=== PATIENT | male | born 1935 | race Caucasian/White ===

== ENCOUNTER 2017-12-11 12:35 | Inpatient (IN) ==
[2017-12-11] MEDS ORDERED: FUROSEMIDE 100 MG/10 ML VIAL IV STA (13:24)
[2017-12-11 13:30] LABS: Basophils % 0.1 % (0.0-0.8); Eosinophils % 0.1 % (0.00-10.9); Hematocrit 38.8 VOL% (42.0-52.0); Hemoglobin 12.1 GM/DL (14.0-18.0); Immature Granulocytes % 0.8 %; Immature Granulocytes Absolute 0.15 #; Lymphocytes # 0.7 10*3/uL (1.4-4.0); Lymphocytes % 3.3 % (21.2-54.2); Mean Corpuscular HGB Conc 31.2 GM/DL (32-36); Mean Corpuscular Hemoglobin 26 PG (27-34); Mean Corpuscular Volume 84.2 FL (87-102); Mean Platelet Volume 11.2 FL (9.6-12.0); Monocytes % 5.2 % (1.7-12.7); Neutrophils # 17.9 10*3/uL (1.4-7.4); Neutrophils % 90.5 % (38.7-73.9); Platelet Count 312 T/CUMM (130-400); Red Blood Count 4.61 MC/CUMM (3.8-5.5); Red Cell Distribution Width 17.2 % (9.3-17.3); White Blood Count 19.8 T/CUMM (4-12)
[2017-12-11] MEDS ORDERED: FUROSEMIDE 100 MG/10 ML VIAL ONE (13:48)
[2017-12-11 13:49] LABS: Band Neutrophils 1 % (0-10); Giant Platelets Few; Hypochromasia 1+; Lymphocytes 1 % (20-55); Ovalocytes Slight; Platelet Estimate Adequate; Segmented Neutrophils 89 % (50-85); Total Cells Counted 100
[2017-12-11 14:05] LABS: Alanine Aminotransferase 25 U/L (16-61); Albumin 3.2 G/DL (3.4-5.0); Alkaline Phosphatase 71 U/L (45-117); Aspartate Amino Transferase 35 U/L (0-37); Blood Urea Nitrogen 102 MG/DL (7-18); Calcium 7.9 MG/DL (8.5-10.1); Glucose 90 MG/DL (74-106); Magnesium 2.3 MG/DL (1.8-2.4); Osmolality,Calculated 301.1 MOS/KG (273-304); Potassium 4.9 MMOL/L (3.5-5.1); Sodium 135 MMOL/L (136-145); Total Protein 8.1 G/DL (6.4-8.3)
[2017-12-11 14:26] LABS: Lactic Acid 2.4 MMOL/L (0.4-2.0)
[2017-12-11 14:27] LABS: Troponin I Only 0.092 NG/ML (0.00-0.045)
[2017-12-11] MEDS ORDERED: SODIUM CHLORIDE 0.9% 1,000 ML IV STA (15:02)
[2017-12-11] MEDS ORDERED: LEVOFLOXACIN INJ 500 MG in PREMIX 1 EACH IV STA (15:07)
[2017-12-11] MEDS ORDERED: ALBUTEROL 2.5 MG/3 ML NEB RESP TX PRN (15:24)
[2017-12-11] MEDS ORDERED: VANCOMYCIN INJ 1,000 MG in SODIUM CHLORIDE 0.9% 250 ML IV SCH (15:30)
[2017-12-11] MEDS ORDERED: AZITHROMYCIN INJ 500 MG in SODIUM CHLORIDE 0.9% 250 ML IV SCH (15:30)
[2017-12-11] MEDS ORDERED: NOREPINEPHRINE 8 MG in SODIUM CHLORIDE 0.9% 242 ML IV SCH (15:30)
[2017-12-11 15:52] LABS: ABG HCO3 16.5 MMOL/L (20-26); ABG Oxygen Saturation 97.4 % (95-100); ABG PH 7.349 (7.35-7.45); ABG TCO2 12.9 MMOL/L (23-27)
[2017-12-11] MEDS ORDERED: LEVOFLOXACIN INJ 100 ML IV ONE (16:00)
[2017-12-11 16:58] LABS: Apearance,Urine Slightly Hazy (Clear); Bacteria,Urine Occasional /HPF (Few); Bilirubin,Urine Negative (Negative); Blood, Urine Negative (Negative); Glucose,Urine (UA) Negative (Negative); Hyaline Casts,Urine 1 /LPF (0-3); Ketones,Urine Negative (Negative); Mucus,Urine Occasional /LPF (Occasional); Nitrite,Urine Negative (Negative); Protein,Urine Negative; RBC,Urine 2 /HPF (0-4); Squamous Epithelial Cell,Urine Occasional /HPF (0-10); Urine Color Yellow (Yellow); Urine Specific Gravity 1.013 (1.001-1.035); Urine Urobilinogen < 2.0 EU/DL (0.2-1.0); WBC,Urine 3 /HPF (0-6)
[2017-12-11] MEDS: ALBUTEROL/IPRATROPIUM 3 ML NEB RESP TX SCH (19:20)
[2017-12-11] MEDS ORDERED: SODIUM CHLORIDE 0.9% 250 ML IV ONE (19:31)
[2017-12-11] MEDS ORDERED: AZITHROMYCIN 500 MG VIAL IV ONE (19:32)
[2017-12-11] MEDS ORDERED: LEVOFLOXACIN INJ 150 ML IV ONE (20:49)
[2017-12-11] MEDS ORDERED: VANCOMYCIN 1,000 MG VIAL ONE (22:01)
[2017-12-11] MEDS ORDERED: ZOLPIDEM 5 MG TABLET PO STA (23:13)
[2017-12-11] MEDS ORDERED: ZOLPIDEM 5 MG TABLET ONE (23:18)
[2017-12-12] MEDS: ALBUTEROL/IPRATROPIUM 3 ML NEB RESP TX SCH ×4 (01:04→20:21)
[2017-12-12 04:53] LABS: Basophils % 0.1 % (0.0-0.8); Eosinophils % 0.3 % (0.00-10.9); Hematocrit 33.2 VOL% (42.0-52.0); Hemoglobin 10.6 GM/DL (14.0-18.0); Immature Granulocytes % 0.6 %; Immature Granulocytes Absolute 0.09 #; Lymphocytes # 1.3 10*3/uL (1.4-4.0); Lymphocytes % 9.3 % (21.2-54.2); Mean Corpuscular HGB Conc 31.9 GM/DL (32-36); Mean Corpuscular Hemoglobin 26 PG (27-34); Mean Platelet Volume 11.2 FL (9.6-12.0); Monocytes # 0.9 10*3/uL (0.11-0.8); Monocytes % 6.7 % (1.7-12.7); Neutrophils # 11.6 10*3/uL (1.4-7.4); Platelet Count 241 T/CUMM (130-400); Red Blood Count 4.05 MC/CUMM (3.8-5.5); Red Cell Distribution Width 17.2 % (9.3-17.3); White Blood Count 13.9 T/CUMM (4-12)
[2017-12-12 05:39] LABS: Albumin 2.4 G/DL (3.4-5.0); Bilirubin,Total 0.6 MG/DL (0.2-1.0); Calcium 7.2 MG/DL (8.5-10.1); Potassium 4.3 MMOL/L (3.5-5.1); Total Protein 6.5 G/DL (6.4-8.3)
[2017-12-12] MEDS: AZITHROMYCIN INJ 500 MG in SODIUM CHLORIDE 0.9% 250 ML IV SCH ×2 (06:30→16:57)
[2017-12-12] MEDS ORDERED: CLOPIDOGREL 75 MG TABLET ONE (08:33)
[2017-12-12] MEDS ORDERED: AZTREONAM 1,000 MG VIAL ONE (08:33)
[2017-12-12] MEDS ORDERED: ASPIRIN CHEW 81 MG TABLET PO ONE (08:33)
[2017-12-12] MEDS ORDERED: AZTREONAM 500 MG in SODIUM CHLORIDE 0.9% 100 ML IV SCH (09:00)
[2017-12-12] MEDS: CLOPIDOGREL 75 MG TABLET PO SCH (09:43)
[2017-12-12] MEDS: ASPIRIN CHEW 81 MG TABLET PO SCH (09:43)
[2017-12-12] MEDS: FINASTERIDE 5 MG TABLET PO SCH (09:47)
[2017-12-12] MEDS: SIMVASTATIN 40 MG TABLET PO SCH (09:48)
[2017-12-12] MEDS ORDERED: FUROSEMIDE 40 MG/4 ML VIAL ONE (10:45)
[2017-12-12] MEDS: FUROSEMIDE 40 MG/4 ML VIAL IV SCH ×2 (10:55→16:56)
[2017-12-12] MEDS ORDERED: VANCOMYCIN INJ 1,000 MG in SODIUM CHLORIDE 0.9% 250 ML IV PRN (11:20)
[2017-12-12] MEDS: methylPREDNISolone SOD SUC 40 MG/1 ML VIAL IV SCH (18:33)
[2017-12-12] MEDS: CARVEDILOL 6.25 MG TABLET PO SCH (21:58)
[2017-12-13] MEDS: ALBUTEROL/IPRATROPIUM 3 ML NEB RESP TX SCH ×3 (00:46→13:00)
[2017-12-13] MEDS: methylPREDNISolone SOD SUC 40 MG/1 ML VIAL IV SCH ×3 (01:04→13:25)
[2017-12-13 07:21] LABS: Calcium 8.2 MG/DL (8.5-10.1); Osmolality,Calculated 299.1 MOS/KG (273-304); Potassium 4.8 MMOL/L (3.5-5.1)
[2017-12-13 07:23] LABS: Risk Ratio 4.73
[2017-12-13] MEDS ORDERED: VANCOMYCIN INJ 1,000 MG in SODIUM CHLORIDE 0.9% 250 ML IV ONE (09:00)
[2017-12-13] MEDS ORDERED: AZTREONAM 500 MG in SYRINGE 1 EACH IV SCH (09:00)
[2017-12-13] MEDS ORDERED: clonazePAM 0.5 MG TABLET PO SCH (09:00)
[2017-12-13] MEDS: SIMVASTATIN 40 MG TABLET PO SCH (09:36)
[2017-12-13] MEDS: CARVEDILOL 6.25 MG TABLET PO SCH (09:36)
[2017-12-13] MEDS: CLOPIDOGREL 75 MG TABLET PO SCH (09:36)
[2017-12-13] MEDS: FINASTERIDE 5 MG TABLET PO SCH (09:36)
[2017-12-13] MEDS: FUROSEMIDE 40 MG/4 ML VIAL IV SCH (09:37)
[2017-12-13] MEDS: ASPIRIN CHEW 81 MG TABLET PO SCH (09:37)
[2017-12-13 11:31] VITALS: BP 132/75
== END 2017-12-13 15:32 | disposition left against medical advice (07) | DRG 871 ==
LOC: N.ED 12:35 → N.EDINP 15:18 → N.TELES 12-12 13:57
PROVIDERS: ADMIT Hospitalist; ATTEND Hospitalist

== ENCOUNTER 2017-12-29 17:05 | Inpatient (IN) ==
[2017-12-29] MEDS ORDERED: ONDANSETRON 4 MG/2 ML VIAL IV STA (17:29)
[2017-12-29] MEDS ORDERED: LEVOFLOXACIN INJ 750 MG in PREMIX 1 EACH IV STA (17:29)
[2017-12-29] MEDS ORDERED: CALCIUM CHLORIDE 1,000 MG/10 ML SYRINGE IV STA (17:29)
[2017-12-29] MEDS ORDERED: ALBUTEROL 2.5 MG/3 ML NEB RESP TX SCH (17:30)
[2017-12-29] MEDS ORDERED: LEVOFLOXACIN INJ 150 ML IV ONE (18:08)
[2017-12-29] MEDS ORDERED: ONDANSETRON 4 MG/2 ML VIAL ONE (18:09)
[2017-12-29] MEDS ORDERED: CALCIUM CHLORIDE 1,000 MG/10 ML SYRINGE IV ONE (18:09)
[2017-12-29 18:10] LABS: ABG Base Excess -13.2 MMOL/L (-2.5-2.5); ABG HCO3 14.3 MMOL/L (20-26); ABG Oxygen Saturation 95.7 % (95-100); ABG PCO2 24.5 MM HG (35-48); ABG PH 7.297 (7.35-7.45); ABG PO2 93.8 MM HG (80-95); ABG TCO2 10.7 MMOL/L (23-27); Allen Test Positive
[2017-12-29 18:30] LABS: Basophils % 0.1 % (0.0-0.8); Hematocrit 38.5 VOL% (42.0-52.0); Hemoglobin 12.2 GM/DL (14.0-18.0); Immature Granulocytes % 1.2 %; Lymphocytes # 0.6 10*3/uL (1.4-4.0); Lymphocytes % 2.4 % (21.2-54.2); Mean Corpuscular HGB Conc 31.7 GM/DL (32-36); Mean Corpuscular Hemoglobin 26 PG (27-34); Mean Corpuscular Volume 81.7 FL (87-102); Monocytes # 0.9 10*3/uL (0.11-0.8); Monocytes % 3.5 % (1.7-12.7); Neutrophils # 23.6 10*3/uL (1.4-7.4); Neutrophils % 92.8 % (38.7-73.9); Platelet Count 348 T/CUMM (130-400); Red Blood Count 4.71 MC/CUMM (3.8-5.5); Red Cell Distribution Width 19.5 % (9.3-17.3); White Blood Count 25.4 T/CUMM (4-12)
[2017-12-29] MEDS ORDERED: ACETAMINOPHEN 325 MG TABLET PO PRN (18:44)
[2017-12-29] MEDS ORDERED: ONDANSETRON 4 MG/2 ML VIAL IV PRN (18:44)
[2017-12-29 18:51] LABS: PT Patient Result 10.9 SECS; Partial Thromboplastin Time 24.5 SECS (0-40)
[2017-12-29 18:55] LABS: Apearance,Urine Slightly Hazy (Clear); Bacteria,Urine Occasional /HPF (Few); Bilirubin,Urine Negative (Negative); Blood, Urine Small mg/dL (Negative); Glucose,Urine (UA) Negative (Negative); Ketones,Urine 5 mg/dL (Negative); Mucus,Urine Occasional /LPF (Occasional); Nitrite,Urine Negative (Negative); Protein,Urine Negative; RBC,Urine 1 /HPF (0-4); Urine Color Yellow (Yellow); Urine Specific Gravity 1.012 (1.001-1.035); Urine Urobilinogen < 2.0 EU/DL (0.2-1.0); WBC,Urine 2 /HPF (0-6)
[2017-12-29 18:55] LABS: Albumin 3.6 G/DL (3.4-5.0); Bilirubin,Total 0.8 MG/DL (0.2-1.0); CKMB % 4.4 %; Calcium 8.6 MG/DL (8.5-10.1); Osmolality,Calculated 330.9 MOS/KG (273-304); Potassium 5.6 MMOL/L (3.5-5.1); Total Protein 7.2 G/DL (6.4-8.3)
[2017-12-29 18:56] LABS: Troponin I Only 0.08 NG/ML (0.00-0.045)
[2017-12-29] MEDS ORDERED: SODIUM CHLORIDE 0.9% 1,000 ML IV SCH ×2 (19:00→19:30)
[2017-12-29 19:13] LABS: Lymphocytes 1 % (20-55); Platelet Estimate Normal; Polychromasia Slight; Segmented Neutrophils 95 % (50-85); Total Cells Counted 100
[2017-12-29] MEDS ORDERED: ENOXAPARIN 30 MG/0.3 ML SYRINGE SUBCUT SCH (21:00)
[2017-12-29] MEDS ORDERED: SODIUM ACETATE 100 MEQ in STERILE WATER INJ 1,000 ML IV SCH (21:30)
[2017-12-29] MEDS ORDERED: SODIUM ACETATE IV SCH (22:00)
[2017-12-29] MEDS ORDERED: SODIUM CHLORIDE IV SCH (22:00)
[2017-12-29] MEDS ORDERED: [UNRECOGNIZED DRUG - OTHER] IV SCH (22:00)
[2017-12-29] MEDS ORDERED: SODIUM ACETATE 100 MEQ in DEXTROSE 5% NACL 0.22% 1,000 ML IV SCH (22:30)
[2017-12-29] MEDS: ALBUTEROL/IPRATROPIUM 3 ML NEB RESP TX SCH (22:52)
[2017-12-30] MEDS: ALBUTEROL/IPRATROPIUM 3 ML NEB RESP TX SCH ×6 (00:32→19:53)
[2017-12-30 02:48] LABS: Basophils % 0.1 % (0.0-0.8); Eosinophils % 0.1 % (0.00-10.9); Hematocrit 33.4 VOL% (42.0-52.0); Hemoglobin 10.8 GM/DL (14.0-18.0); Immature Granulocytes Absolute 0.26 #; Lymphocytes # 0.5 10*3/uL (1.4-4.0); Lymphocytes % 1.8 % (21.2-54.2); Mean Corpuscular HGB Conc 32.3 GM/DL (32-36); Mean Corpuscular Hemoglobin 27 PG (27-34); Mean Corpuscular Volume 82.1 FL (87-102); Mean Platelet Volume 12.1 FL (9.6-12.0); Monocytes # 1.9 10*3/uL (0.11-0.8); Monocytes % 7.3 % (1.7-12.7); Neutrophils # 23.6 10*3/uL (1.4-7.4); Neutrophils % 89.7 % (38.7-73.9); Platelet Count 299 T/CUMM (130-400); Red Blood Count 4.07 MC/CUMM (3.8-5.5); Red Cell Distribution Width 18.8 % (9.3-17.3); White Blood Count 26.3 T/CUMM (4-12)
[2017-12-30 04:56] LABS: Calcium 8.5 MG/DL (8.5-10.1); Osmolality,Calculated 337.1 MOS/KG (273-304); Potassium 5.1 MMOL/L (3.5-5.1)
[2017-12-30 06:11] LABS: Lymphocytes 2 % (20-55); Segmented Neutrophils 96 % (50-85); Total Cells Counted 100
[2017-12-30 06:12] LABS: Hypochromasia Slight; Platelet Estimate Normal
[2017-12-30] MEDS: PANTOPRAZOLE 40 MG TABLET PO SCH (09:02)
[2017-12-30] MEDS: APIXABAN 2.5 MG TABLET PO SCH ×2 (11:04→21:24)
[2017-12-30] MEDS: AZITHROMYCIN INJ 500 MG in SODIUM CHLORIDE 0.9% 250 ML IV SCH (11:05)
[2017-12-30] MEDS: SODIUM ACETATE 100 MEQ in DEXTROSE 5% NACL 0.22% 1,000 ML IV SCH ×2 (11:50→17:16)
[2017-12-31] MEDS: SODIUM ACETATE 100 MEQ in DEXTROSE 5% NACL 0.22% 1,000 ML IV SCH ×2 (00:05→07:07)
[2017-12-31] MEDS: ALBUTEROL/IPRATROPIUM 3 ML NEB RESP TX SCH ×6 (01:15→19:39)
[2017-12-31 05:00] LABS: Basophils % 0.1 % (0.0-0.8); Eosinophils # 0.1 10*3/uL (0.0-0.87); Eosinophils % 0.6 % (0.00-10.9); Hematocrit 30.1 VOL% (42.0-52.0); Hemoglobin 10.2 GM/DL (14.0-18.0); Immature Granulocytes % 0.7 %; Immature Granulocytes Absolute 0.11 #; Lymphocytes # 0.4 10*3/uL (1.4-4.0); Lymphocytes % 2.3 % (21.2-54.2); Mean Corpuscular HGB Conc 33.9 GM/DL (32-36); Mean Corpuscular Hemoglobin 27 PG (27-34); Mean Corpuscular Volume 78.2 FL (87-102); Mean Platelet Volume 11.7 FL (9.6-12.0); Monocytes % 6.7 % (1.7-12.7); Neutrophils # 13.7 10*3/uL (1.4-7.4); Neutrophils % 89.6 % (38.7-73.9); Platelet Count 181 T/CUMM (130-400); Red Blood Count 3.85 MC/CUMM (3.8-5.5); Red Cell Distribution Width 19.3 % (9.3-17.3); White Blood Count 15.3 T/CUMM (4-12)
[2017-12-31 05:37] LABS: Albumin 2.5 G/DL (3.4-5.0); Bilirubin,Total 0.9 MG/DL (0.2-1.0); Calcium 6.6 MG/DL (8.5-10.1); Osmolality,Calculated 330.7 MOS/KG (273-304); Potassium 3.9 MMOL/L (3.5-5.1); Total Protein 5.1 G/DL (6.4-8.3)
[2017-12-31 06:04] LABS: Lymphocytes 3 % (20-55); Segmented Neutrophils 90 % (50-85); Total Cells Counted 100
[2017-12-31 06:05] LABS: Hypochromasia 1+; Microcytosis 1+; Platelet Estimate Adequate
[2017-12-31 06:14] LABS: Troponin I Only 0.119 NG/ML (0.00-0.045)
[2017-12-31] MEDS: APIXABAN 2.5 MG TABLET PO SCH ×2 (10:42→21:38)
[2017-12-31] MEDS: PANTOPRAZOLE 40 MG TABLET PO SCH (10:42)
[2017-12-31] MEDS: DEXTROSE 5% NACL 0.9% 1,000 ML IV SCH (13:41)
[2017-12-31] MEDS: AZITHROMYCIN INJ 500 MG in SODIUM CHLORIDE 0.9% 250 ML IV SCH (13:43)
[2017-12-31] MEDS: LEVOFLOXACIN INJ 500 MG in PREMIX 1 EACH IV SCH (19:11)
[2017-12-31] MEDS: AMIODARONE 200 MG TABLET PO SCH (21:38)
[2018-01-01] MEDS: ALBUTEROL/IPRATROPIUM 3 ML NEB RESP TX SCH ×7 (00:50→23:20)
[2018-01-01] MEDS: DEXTROSE 5% NACL 0.9% 1,000 ML IV SCH ×4 (02:05→20:55)
[2018-01-01 06:16] LABS: Basophils % 0.1 % (0.0-0.8); Eosinophils % 0.2 % (0.00-10.9); Hematocrit 28.3 VOL% (42.0-52.0); Immature Granulocytes % 1.5 %; Immature Granulocytes Absolute 0.35 #; Lymphocytes # 0.4 10*3/uL (1.4-4.0); Lymphocytes % 1.8 % (21.2-54.2); Mean Corpuscular HGB Conc 31.8 GM/DL (32-36); Mean Corpuscular Hemoglobin 26 PG (27-34); Mean Platelet Volume 12.8 FL (9.6-12.0); Monocytes # 1.6 10*3/uL (0.11-0.8); Monocytes % 6.8 % (1.7-12.7); Neutrophils # 21.4 10*3/uL (1.4-7.4); Neutrophils % 89.6 % (38.7-73.9); Platelet Count 138 T/CUMM (130-400); Red Blood Count 3.41 MC/CUMM (3.8-5.5); Red Cell Distribution Width 19.8 % (9.3-17.3); White Blood Count 23.8 T/CUMM (4-12)
[2018-01-01 06:50] LABS: Band Neutrophils 2 % (0-10); Giant Platelets Few; Hypochromasia 1+; Lymphocytes 3 % (20-55); Microcytosis Slight; Ovalocytes Slight; Platelet Estimate Normal; Segmented Neutrophils 90 % (50-85); Total Cells Counted 100
[2018-01-01 07:38] LABS: Calcium 6.6 MG/DL (8.5-10.1); Osmolality,Calculated 306.2 MOS/KG (273-304); Potassium 3.7 MMOL/L (3.5-5.1)
[2018-01-01] MEDS: ASCORBIC ACID 500 MG TABLET PO SCH ×2 (09:34→20:55)
[2018-01-01] MEDS: PANTOPRAZOLE 40 MG TABLET PO SCH ×2 (09:34→20:55)
[2018-01-01] MEDS: AMIODARONE 200 MG TABLET PO SCH ×2 (09:35→20:55)
[2018-01-01] MEDS: APIXABAN 2.5 MG TABLET PO SCH (09:35)
[2018-01-01] MEDS: AZITHROMYCIN INJ 500 MG in SODIUM CHLORIDE 0.9% 250 ML IV SCH (11:26)
[2018-01-01] MEDS ORDERED: LIDOCAINE 2% TOP JELLY 20 ML VIAL INTRAURETH ONE (13:21)
[2018-01-02] MEDS: ALBUTEROL/IPRATROPIUM 3 ML NEB RESP TX SCH ×6 (03:10→23:19)
[2018-01-02 04:18] LABS: Basophils % 0.1 % (0.0-0.8); Eosinophils # 0.1 10*3/uL (0.0-0.87); Eosinophils % 0.7 % (0.00-10.9); Hematocrit 24.6 VOL% (42.0-52.0); Hemoglobin 7.9 GM/DL (14.0-18.0); Immature Granulocytes % 0.9 %; Immature Granulocytes Absolute 0.17 #; Lymphocytes # 0.5 10*3/uL (1.4-4.0); Lymphocytes % 2.9 % (21.2-54.2); Mean Corpuscular HGB Conc 32.1 GM/DL (32-36); Mean Corpuscular Hemoglobin 26 PG (27-34); Mean Platelet Volume 12.2 FL (9.6-12.0); Monocytes # 1.1 10*3/uL (0.11-0.8); Neutrophils # 16.4 10*3/uL (1.4-7.4); Neutrophils % 89.4 % (38.7-73.9); Platelet Count 113 T/CUMM (130-400); Red Cell Distribution Width 19.9 % (9.3-17.3); White Blood Count 18.3 T/CUMM (4-12)
[2018-01-02 04:39] LABS: INR 1.4; PT Patient Result 14.7 SECS
[2018-01-02 04:45] LABS: Anisocytosis 1+; Hypochromasia 1+; Lymphocytes 1 % (20-55); Microcytosis 1+; Ovalocytes Slight; Segmented Neutrophils 95 % (50-85); Total Cells Counted 100
[2018-01-02 04:46] LABS: Platelet Estimate Decreased
[2018-01-02 04:50] LABS: Calcium 6.5 MG/DL (8.5-10.1); Osmolality,Calculated 302.8 MOS/KG (273-304); Potassium 3.2 MMOL/L (3.5-5.1)
[2018-01-02] MEDS: DEXTROSE 5% NACL 0.9% 1,000 ML IV SCH ×2 (07:58→11:26)
[2018-01-02] MEDS: ASCORBIC ACID 500 MG TABLET PO SCH ×2 (10:35→20:54)
[2018-01-02] MEDS: AMIODARONE 200 MG TABLET PO SCH ×2 (10:35→20:54)
[2018-01-02] MEDS: PANTOPRAZOLE 40 MG TABLET PO SCH ×3 (10:35→21:11)
[2018-01-02] MEDS: POTASSIUM CHLORIDE 20 MEQ/15 ML UDCUP PO SCH (10:36)
[2018-01-02 11:22] LABS: % Iron Saturation 32.9 % (18-50)
[2018-01-02] MEDS: AZITHROMYCIN INJ 500 MG in SODIUM CHLORIDE 0.9% 250 ML IV SCH (11:30)
[2018-01-02] MEDS: LEVOFLOXACIN INJ 500 MG in PREMIX 1 EACH IV SCH (18:22)
[2018-01-03] MEDS: DEXTROSE 5% NACL 0.9% 1,000 ML IV SCH ×2 (01:17→21:27)
[2018-01-03] MEDS: ALBUTEROL/IPRATROPIUM 3 ML NEB RESP TX SCH ×6 (02:50→23:29)
[2018-01-03 05:22] LABS: Basophils % 0.1 % (0.0-0.8); Eosinophils # 0.1 10*3/uL (0.0-0.87); Eosinophils % 0.8 % (0.00-10.9); Hematocrit 24.5 VOL% (42.0-52.0); Hemoglobin 7.8 GM/DL (14.0-18.0); Immature Granulocytes % 0.6 %; Immature Granulocytes Absolute 0.07 #; Lymphocytes # 0.5 10*3/uL (1.4-4.0); Lymphocytes % 3.9 % (21.2-54.2); Mean Corpuscular HGB Conc 31.8 GM/DL (32-36); Mean Corpuscular Hemoglobin 27 PG (27-34); Mean Corpuscular Volume 83.3 FL (87-102); Mean Platelet Volume 11.6 FL (9.6-12.0); Monocytes # 1.2 10*3/uL (0.11-0.8); Monocytes % 9.8 % (1.7-12.7); Neutrophils # 10.1 10*3/uL (1.4-7.4); Neutrophils % 84.8 % (38.7-73.9); Red Blood Count 2.94 MC/CUMM (3.8-5.5); Red Cell Distribution Width 20.7 % (9.3-17.3); White Blood Count 11.9 T/CUMM (4-12)
[2018-01-03 05:33] LABS: Platelet Count 97 T/CUMM (130-400)
[2018-01-03 05:47] LABS: Eosinophils 3 % (0-10); Giant Platelets Few; Hypochromasia 1+; Lymphocytes 3 % (20-55); Microcytosis Slight; Ovalocytes Slight; Platelet Estimate Decreased; Segmented Neutrophils 89 % (50-85); Total Cells Counted 100
[2018-01-03 06:06] LABS: Calcium 6.4 MG/DL (8.5-10.1); Osmolality,Calculated 309.1 MOS/KG (273-304); Potassium 3.1 MMOL/L (3.5-5.1)
[2018-01-03] MEDS ORDERED: PHENYLEPHRINE 1 MG/10 ML SYRINGE IV ONE (10:05)
[2018-01-03] MEDS ORDERED: LIDOCAINE 2% 5 ML VIAL ONE (10:05)
[2018-01-03] MEDS ORDERED: PROPOFOL 200 MG/20 ML VIAL IV ONE (10:05)
[2018-01-03] MEDS: AMIODARONE 200 MG TABLET PO SCH ×2 (10:34→21:26)
[2018-01-03] MEDS: POTASSIUM CHLORIDE 20 MEQ/15 ML UDCUP PO SCH (10:43)
[2018-01-03] MEDS: ASCORBIC ACID 500 MG TABLET PO SCH ×2 (10:46→21:26)
[2018-01-03] MEDS: PANTOPRAZOLE 40 MG TABLET PO SCH ×2 (10:46→21:26)
[2018-01-03] MEDS: AZITHROMYCIN INJ 500 MG in SODIUM CHLORIDE 0.9% 250 ML IV SCH (10:53)
[2018-01-04] MEDS: DEXTROSE 5% NACL 0.9% 1,000 ML IV SCH ×2 (00:57→06:07)
[2018-01-04] MEDS: ALBUTEROL/IPRATROPIUM 3 ML NEB RESP TX SCH ×6 (02:53→22:49)
[2018-01-04 06:36] LABS: Basophils % 0.2 % (0.0-0.8); Eosinophils # 0.1 10*3/uL (0.0-0.87); Eosinophils % 0.9 % (0.00-10.9); Hematocrit 25.4 VOL% (42.0-52.0); Hemoglobin 8.1 GM/DL (14.0-18.0); Immature Granulocytes % 0.9 %; Immature Granulocytes Absolute 0.11 #; Lymphocytes # 0.6 10*3/uL (1.4-4.0); Lymphocytes % 4.9 % (21.2-54.2); Mean Corpuscular HGB Conc 31.9 GM/DL (32-36); Mean Corpuscular Hemoglobin 27 PG (27-34); Mean Corpuscular Volume 84.1 FL (87-102); Mean Platelet Volume 12.5 FL (9.6-12.0); Monocytes # 1.4 10*3/uL (0.11-0.8); Monocytes % 10.7 % (1.7-12.7); Neutrophils # 10.4 10*3/uL (1.4-7.4); Neutrophils % 82.4 % (38.7-73.9); Platelet Count 108 T/CUMM (130-400); Red Blood Count 3.02 MC/CUMM (3.8-5.5); Red Cell Distribution Width 21.8 % (9.3-17.3); White Blood Count 12.6 T/CUMM (4-12)
[2018-01-04 07:07] LABS: Calcium 6.9 MG/DL (8.5-10.1); Osmolality,Calculated 308.3 MOS/KG (273-304)
[2018-01-04 08:21] LABS: Hypochromasia 1+; Lymphocytes 5 % (20-55); Microcytosis Slight; Ovalocytes Slight; Platelet Estimate Decreased; Segmented Neutrophils 90 % (50-85); Total Cells Counted 100
[2018-01-04] MEDS: APIXABAN 2.5 MG TABLET PO SCH ×2 (09:00→21:48)
[2018-01-04] MEDS: PANTOPRAZOLE 40 MG TABLET PO SCH ×2 (09:00→21:48)
[2018-01-04] MEDS: ASCORBIC ACID 500 MG TABLET PO SCH ×2 (09:00→21:48)
[2018-01-04] MEDS: DEXT 5% NACL 0.2% KCL 20 MEQ 20 MEQ/1,000 ML BAG IV SCH ×2 (11:29→23:16)
[2018-01-04] MEDS: AZITHROMYCIN INJ 500 MG in SODIUM CHLORIDE 0.9% 250 ML IV SCH (11:34)
[2018-01-04] MEDS: AMIODARONE 200 MG TABLET PO SCH ×2 (11:43→21:48)
[2018-01-04] MEDS ORDERED: METOPROLOL TARTRATE 5 MG/5 ML VIAL IV ONE (16:29)
[2018-01-04] MEDS ORDERED: POTASSIUM CHLORIDE INJ 20 MEQ in SODIUM CHLORIDE 0.9% 250 ML IV ONE (17:30)
[2018-01-04] MEDS: ACETAMINOPHEN 650 MG SUPP RECTAL PRN (21:47)
[2018-01-04] MEDS: LEVOFLOXACIN INJ 500 MG in PREMIX 1 EACH IV SCH (21:56)
[2018-01-04] MEDS ORDERED: FUROSEMIDE 40 MG/4 ML VIAL IV ONE (23:45)
[2018-01-05] MEDS ORDERED: LEVALBUTEROL 1.25 MG/3 ML NEB RESP TX SCH (01:00)
[2018-01-05 01:38] LABS: Basophils % 0.2 % (0.0-0.8); Calcium 6.8 MG/DL (8.5-10.1); Hematocrit 25.4 VOL% (42.0-52.0); Hemoglobin 8.1 GM/DL (14.0-18.0); Immature Granulocytes % 1.5 %; Immature Granulocytes Absolute 0.25 #; Lymphocytes # 0.6 10*3/uL (1.4-4.0); Lymphocytes % 3.7 % (21.2-54.2); Mean Corpuscular HGB Conc 31.9 GM/DL (32-36); Mean Corpuscular Hemoglobin 27 PG (27-34); Mean Corpuscular Volume 84.9 FL (87-102); Mean Platelet Volume 11.1 FL (9.6-12.0); Monocytes # 0.9 10*3/uL (0.11-0.8); Monocytes % 5.6 % (1.7-12.7); NRBC # 0.02 10*3/uL; Neutrophils # 14.6 10*3/uL (1.4-7.4); Osmolality,Calculated 310.3 MOS/KG (273-304); Platelet Count 109 T/CUMM (130-400); Potassium 4.2 MMOL/L (3.5-5.1); Red Blood Count 2.99 MC/CUMM (3.8-5.5); Red Cell Distribution Width 22.2 % (9.3-17.3); White Blood Count 16.4 T/CUMM (4-12)
[2018-01-05 02:23] LABS: Band Neutrophils 5 % (0-10); Lymphocytes 6 % (20-55); Platelet Estimate Decreased; Segmented Neutrophils 84 % (50-85); Total Cells Counted 100
[2018-01-05] MEDS: LEVALBUTEROL 1.25 MG/3 ML NEB RESP TX SCH ×6 (02:28→23:03)
[2018-01-05] MEDS: ACETAMINOPHEN 650 MG SUPP RECTAL PRN ×2 (03:20→19:36)
[2018-01-05] MEDS: ASCORBIC ACID 500 MG TABLET PO SCH ×2 (09:46→20:49)
[2018-01-05] MEDS: PANTOPRAZOLE 40 MG TABLET PO SCH ×2 (09:47→20:49)
[2018-01-05] MEDS: AMIODARONE 200 MG TABLET PO SCH ×2 (09:47→20:49)
[2018-01-05] MEDS: APIXABAN 2.5 MG TABLET PO SCH (11:06)
[2018-01-05 11:41] LABS: Apearance,Urine CLOUDY (Clear); Bacteria,Urine Occasional /HPF (Few); Bilirubin,Urine Negative (Negative); Blood, Urine Moderate mg/dL (Negative); Glucose,Urine (UA) Negative (Negative); Ketones,Urine Negative (Negative); Nitrite,Urine Negative (Negative); Protein,Urine 100 MG/DL; RBC,Urine 36 /HPF (0-4); Squamous Epithelial Cell,Urine Occasional /HPF (0-10); Urine Color Yellow (Yellow); Urine Specific Gravity 1.012 (1.001-1.035); Urine Urobilinogen < 2.0 EU/DL (0.2-1.0); WBC,Urine 154 /HPF (0-6)
[2018-01-05] MEDS: AZITHROMYCIN INJ 500 MG in SODIUM CHLORIDE 0.9% 250 ML IV SCH (11:49)
[2018-01-05] MEDS: DEXT 5% NACL 0.2% KCL 20 MEQ 20 MEQ/1,000 ML BAG IV SCH (12:51)
[2018-01-05] MEDS ORDERED: TUBERCULIN SKIN TEST 0.1 ML SYRINGE INTRADERM ONE (17:18)
[2018-01-05] MEDS ORDERED: ACETAMINOPHEN 650 MG SUPP RECTAL PRN (21:38)
[2018-01-05] MEDS ORDERED: SODIUM CHLORIDE 0.9% 500 ML IV ONE (23:52)
[2018-01-05] MEDS ORDERED: NOREPINEPHRINE 4 MG/4 ML VIAL IV ONE (23:56)
[2018-01-06 00:29] LABS: ABG PCO2 24.9 MM HG (35-48); ABG PH 7.523 (7.35-7.45); ABG PO2 328.1 MM HG (80-95); ABG TCO2 20.8 MMOL/L (23-27)
[2018-01-06] MEDS ORDERED: MEROPENEM 500 MG in SYRINGE 1 EACH IV SCH (00:30)
[2018-01-06] MEDS ORDERED: VANCOMYCIN INJ 1,000 MG in SODIUM CHLORIDE 0.9% 250 ML IV SCH (00:30)
[2018-01-06] MEDS ORDERED: NOREPINEPHRINE 8 MG in SODIUM CHLORIDE 0.9% 242 ML IV SCH (00:30)
[2018-01-06 00:55] LABS: Basophils % 0.1 % (0.0-0.8); Hematocrit 25.4 VOL% (42.0-52.0); Immature Granulocytes % 1.5 %; Lymphocytes # 1.4 10*3/uL (1.4-4.0); Lymphocytes % 6.9 % (21.2-54.2); Mean Corpuscular HGB Conc 31.5 GM/DL (32-36); Mean Corpuscular Hemoglobin 28 PG (27-34); Mean Corpuscular Volume 88.2 FL (87-102); Mean Platelet Volume 11.1 FL (9.6-12.0); Monocytes # 0.8 10*3/uL (0.11-0.8); Monocytes % 3.9 % (1.7-12.7); NRBC # 0.04 10*3/uL; Neutrophils # 18.1 10*3/uL (1.4-7.4); Neutrophils % 87.6 % (38.7-73.9); Platelet Count 115 T/CUMM (130-400); Red Blood Count 2.88 MC/CUMM (3.8-5.5); Red Cell Distribution Width 23.5 % (9.3-17.3); White Blood Count 20.6 T/CUMM (4-12)
[2018-01-06] MEDS ORDERED: PHENYLEPHRINE DRIP 40 MG/250 ML PREMIX IV ONE (01:13)
[2018-01-06 01:23] LABS: Albumin 2.2 G/DL (3.4-5.0); Calcium 6.9 MG/DL (8.5-10.1); Osmolality,Calculated 312.3 MOS/KG (273-304); Potassium 3.8 MMOL/L (3.5-5.1); Total Protein 5.4 G/DL (6.4-8.3)
[2018-01-06 01:24] LABS: Calcium 6.7 MG/DL (8.5-10.1); Osmolality,Calculated 314.1 MOS/KG (273-304); Potassium 3.9 MMOL/L (3.5-5.1); Prealbumin 10.9 MG/DL (20-40)
[2018-01-06 01:58] VITALS: BP 88/51
[2018-01-06] MEDS ORDERED: AMIODARONE INJ 450 MG in DEXTROSE 5% 241 ML IV SCH (02:30)
[2018-01-06 04:06] LABS: Lymphocytes 4 % (20-55); Nucleated Red Blood Cells 1 (0-5); Platelet Estimate Normal; Segmented Neutrophils 95 % (50-85); Total Cells Counted 100
== END 2018-01-06 03:35 | disposition expired | DRG 682 ==
LOC: EDUNIT# → EDBD → N.ED 17:05 → N.EDINP 17:31 → SUATTDRO 17:31 → N.3E 19:10 → N.CC 01-06 00:06
PROVIDERS: ATTEND Internal Medicine Nephrology